=== PATIENT | female | born 1955 | race Caucasian/White ===

== ENCOUNTER → 2016-10-12 | Outpatient (CLI) | payer OTHER ==
--- NOTE | 2016-10-12 13:06 | MAMMOGRAPHY REPORT ---
BILATERAL DIGITAL SCREENING MAMMOGRAM WITH CAD: 10/12/2016 CLINICAL HISTORY: Routine screening. Patient has no complaints. TECHNIQUE: Bilateral CC and MLO views were obtained. Current study was also evaluated with a Compute r Aided Detection (CAD) system. COMPARISON: Comparison is made to exams dated: 10/10/2015 mammogram and 10/01/2014 mammogram - [facility]. BREAST COMPOSITION: There are scattered areas of fibroglandular density in both breasts. FINDINGS: The parenchymal pattern is unchanged. No developing mass, architectural distortion or clus ter of suspicious microcalcifications is seen in either breast. IMPRESSION: ACR BI-RADS CATEGORY 2: BENIGN There is no mammographic evidence of malignancy. A 1 year screening mammogram is recommended. The pa tient will receive written notification of the results. Approximately 10% of breast cancers are not detected with mammography. A negative mammographic report should not delay biopsy if a clinically suggestive mass is present. Stefanie Wall M.D. ay/:10/12/2016 10:44:38 Theatrical Rigger: Franecsca Cramer, [facility] letter sent: Normal 1/2 BI-RADS Code: ACR BI-RADS Category 2: Benign
== END | disposition home or self-care (01) ==
LOC: C.MAMM 10:12
PROVIDERS: ATTEND Family Medicine
DX: Z12.31 Encounter for screening mammogram for malignant neoplasm of breast (principal)

== ENCOUNTER → 2016-10-25 | Outpatient (CLI) | payer OTHER | END | disposition home or self-care (01) | LOC: C.MAMM 08:59 | PROVIDERS: ATTEND Physician Assistant | DX: M85.851 Other specified disorders of bone density and structure, right thigh (principal); M85.852 Other specified disorders of bone density and structure, left thigh; M85.88 Other specified disorders of bone density and structure, other site ==

== ENCOUNTER → 2017-10-13 | Outpatient (CLI) | payer OTHER ==
--- NOTE | 2017-10-13 16:05 | MAMMOGRAPHY REPORT ---
BILATERAL DIGITAL SCREENING MAMMOGRAM TOMOSYNTHESIS WITH CAD: 10/13/2017 CLINICAL HISTORY: Routine screening. Patient has no complaints. TECHNIQUE: The study was acquired using full field digital technology and interpreted from soft copy. Breast tomosynthesis in addition to standard 2D mammography was performed. Current study was also ev aluated with a Computer Aided Detection (CAD) system. COMPARISON: Comparison is made to exams dated: 10/12/2016 mammogram, 10/10/2015 mammogram, and 5 mammogram - [facility]. BREAST COMPOSITION: There are scattered areas of fibroglandular density in both breasts. FINDINGS: No suspicious masses, calcifications, or areas of architectural distortion are noted in either breast . There has been no significant interval change compared to prior exams. IMPRESSION: ACR BI-RADS CATEGORY 1: NEGATIVE There is no mammographic evidence of malignancy. A 1 year screening mammogram is recommended.( 019) The patient will receive written notification of the results. Some breast cancers are not detected with mammography. A negative mammographic report should not sheldon y biopsy if a clinically suggestive mass is present. Aniya Griffith M.D. ah/:10/13/2017 13:04:19 Sizing End Bander: RT Aleksandar(R)(M), [facility] letter sent: Normal 1/2 BI-RADS Code: ACR BI-RADS Category 1: Negative
== END | disposition home or self-care (01) ==
LOC: C.MAMM 09:42
PROVIDERS: ATTEND Family Medicine
DX: Z12.31 Encounter for screening mammogram for malignant neoplasm of breast (principal)

== ENCOUNTER → 2017-10-19 | Outpatient (CLI) | payer OTHER ==
--- NOTE | 2017-10-19 09:39 | DIAGNOSTIC IMAGING REPORT ---
CHEST 2 VIEWS ROUTINE CLINICAL HISTORY: R06.00,K21.9,I10 dyspnea COMPARISON STUDY: 02/07/2014 FINDINGS: The bones soft tissues and hemidiaphragms are normal. The cardiomediastinal silhouette is normal. The lungs are clear. The pulmonary vasculature is normal. IMPRESSION: Negative chest. The above report was generated using voice recognition software. It may contain grammatical, syntax or spelling errors. Electronically signed by: Catalino Narayan M.D. 10/19/2017 9:38 AM Dictated Date/Time: 10/19/2017 9:37 AM
== END | disposition home or self-care (01) ==
LOC: C.RAD1850 09:26
PROVIDERS: ATTEND Family Medicine
DX: R06.00 Dyspnea, unspecified (principal); K21.9 Gastro-esophageal reflux disease without esophagitis; I10 Essential (primary) hypertension

== ENCOUNTER 2024-10-02 15:15 | Observation (INO) ==
--- NOTE | 2024-10-02 16:57 | Emergency Department Note ---
Impression & Plan Lightheadedness, Hypertension ED Provider Note HISTORY OF PRESENT ILLNESS: Patient is a 69-year-old female presenting with lightheadedness and fatigue. Patient reports that 4 days ago she became very fatigued and rundown and "just did not feel right." She states that over the last 4 days she has been having intermittent episodes of lightheadedness, which she describes as feeling like she is going to pass out, but has not passed out. She has a history of pulmonary fibrosis and wears 1 L nasal cannula daily. She denies any fever or cough. She states that her blood pressure has been significantly elevated over the last 4 days. She denies any recent sick contact exposures. Denies any chest pain. She reports that she just feels very fatigued and "cannot do my normal activities." Denies any abdominal pain, nausea or vomiting. Denies any dysuria or hematuria. Denies any history of cardiac stents. Denies any DVT or PE history. She is on 81 mg baby aspirin daily. ROS: as above PHYSICAL EXAM: Constitutional: Patient appears in no acute distress. HENT: Head: Normocephalic and atraumatic. Eyes: EOMI, PERRL Mouth/Throat: Mucous membranes moist. Neck: Trachea midline. Neck supple. Cardiovascular: RRR, No murmurs, rubs or gallops. Intact distal pulses. Pulmonary/Chest: No respiratory distress. Breath sounds clear and equal bilaterally. No wheezes or rales. Abdominal: Abdomen soft, no tenderness, rebound or guarding. Musculoskeletal: No edema, tenderness or deformity noted. Skin: Warm and dry. No rash, erythema, pallor or cyanosis Psychiatric: Appropriate mood and affect for situation. Neurological: Alert and keenly responsive. CN II-XII grossly intact, moving all extremities equally and fully. MDM: - Vitals signs showed hypertension and tachycardia - History obtained via patient. History as above. - Chronic conditions affecting care: GERD; HTN - Differential diagnoses include, but are not limited to: ACS; electrolyte abnormality; dehydration; hypertension; CVA; intracranial hemorrhage - Order placed for continuous cardiac monitoring. At this time, monitor showed rate of 87 bpm with normal sinus rhythm, per my interpretation. - External medical records reviewed. Pulmonary office visit note dated 05/17/2024 was reviewed. Patient follows in their clinic for interstitial lung disease. - EKG image interpreted by myself showed normal sinus rhythm. Rate tachycardic at 101 bpm. QT 342. No acute ischemic changes. - Laboratory workup interpreted by myself showed normal WBC; stable electrolytes; normal AST/ALT; normal troponin; normal BNP - Lyme, anaplasmosis, babesia negative - CXR image reviewed by myself is negative for pneumonia, per my interpretation. - UA negative for infection - Orthostatic vital signs did not show any hypotension, but instead showed hypertension. Patient reportedly became lightheaded with standing. - Discussed results with the patient. Unclear etiology for her symptoms at this time. However, workup is grossly unremarkable. Repeat troponin was ordered. Did discuss discharge with the patient, but she reports she feels hesitant to go home, given that she is feeling so lightheaded. Will discuss case with inpatient hospitalist service. - Discussion was had with case aide about patient's case and need for admission - Hospitalist, Dr. Landin, consulted for admission - Patient admitted to [facility] hospitalist service for further evaluation and management. ASSESSMENT AND PLAN: Diagnosis: lightheadedness; hypertension Plan: Admit Past Med/Surg History Problem List (Updated 10/02/24 @ 19:40 by Theodora Fountain MD) Hypertension (Acute) Lightheadedness (Acute) Hypoxia Dyspnea Interstitial lung disease Abnormal CT scan of lung Abnormal PFT No significant past surgical history Encounter for pre-operative examination Medical History (Updated 10/02/24 @ 19:40 by Theodora Fountain MD) Sciatica CURRENT FLARE UP Osteopetrosis Borderline high cholesterol GERD (gastroesophageal reflux disease) Hypertension Surgical History History of right cataract surgery DEC 05 2019 History of colonoscopy History of removal of cyst GANGLION CYST, MULTIPLE History of hysterectomy Family History Sister Family history of diabetes mellitus (DM) Brother Family history of diabetes mellitus (DM) Social History (Updated 05/22/24 @ 15:09 by Silvia Acosta LPN) Smoking Status: Former smoker Tobacco Type: Cigarettes Age Started Using Tobacco: 15; Age Quit Using Tobacco: 28; packs per day: 1; Do You Dip or Chew Tobacco: No; Hx Alcohol Use: No Preferred Language: Amharic Communication Ability: Effective Wafer Fab Operator Required: No Beliefs That Will Affect Care: None and Jew Jew Beliefs: ORTHODOXY marital status: Current Living Situation: Family Current Living Situation Comment: SON current occupational status: unemployed Feels Safe at Home: Yes Assistive Devices: Contacts, Denture - Upper and Denture - Lower Allergies Allergies Allergy/AdvReac Type Severity Reaction Status Date / Time No Known Allergies Allergy Verified 05/22/24 16:04 Home Meds Home Medications Medication Instructions Recorded Confirmed calcium 600 mg (as 1 tab PO BID 02/18/18 05/22/24 carbonate)-vitamin D3 5 mcg (200 unit) tablet (Calcium 600 + D(3)) krill oil 500 mg capsule 1 cap PO DAILY 02/18/18 05/22/24 losartan 50 mg tablet 50 mg PO HS 02/18/18 05/22/24 multivitamin 1 tab PO DAILY 02/18/18 05/22/24 omeprazole 40 mg capsule,delayed 40 mg PO HS 02/18/18 05/22/24 release risedronate 150 mg tablet 150 mg PO MONTHLY 02/18/18 05/22/24 aspirin 81 mg tablet,delayed 81 mg PO DAILY 11/23/19 05/22/24 release (Aspir-) coenzyme Q10 100 mg capsule 50 mg PO DAILY 11/23/19 05/22/24 (CoQ-10) ibuprofen 200 mg tablet 200 - 600 mg PO Q6H PRN ACHES AND 11/23/19 05/22/24 PAINS atorvastatin 10 mg tablet 10 mg PO DAILY 07/15/20 05/22/24 loperamide 2 mg tablet (Imodium 2 mg PO Q6H PRN 12/01/21 05/22/24 A-D) lactobacillus combination no.9 4 4,000 mmu cells PO DAILY 10/12/22 05/22/24 billion cell capsule (Adult 50 Plus Probiotic) Previous Rx's Medication Instructions Recorded Oxygen Home #1 ea 10/21/22 Portable Oxygen #1 ea 10/21/22 nintedanib 100 mg capsule 100 mg PO Q12H #180 caps 08/29/23 Results & Data (ED) Vital Signs Vital Signs - 24 hr 10/02/24 15:33 10/02/24 16:35 10/02/24 16:35 Temperature 36.6 C Temperature Source Temporal Artery Scan Pulse Rate - Lying Pulse Rate - Sitting Pulse Rate - Standing Pulse Rate 112 H 93 H Pulse Rate [Left Finger] 91 H Pulse Rhythm Regular Pulse Rhythm [Left Finger] Regular Pulse Strength [Left Finger] Normal Respiratory Rate 18 20 20 Respiratory Effort / Characteristics Non-Labored Spontaneous Non-Labored Spontaneous Respiratory Depth Normal Normal Respiratory Pattern Regular Regular Blood Pressure - Lying Blood Pressure - Sitting Blood Pressure- Standing Blood Pressure 175/120 H Blood Pressure [Left Arm] 194/103 H Blood Pressure Mean 138 Blood Pressure Mean [Left Arm] 133 Blood Pressure Position [Left Arm] Sitting Pulse Oximetry 98 97 98 Oxygen Delivery Method Nasal Cannula Room Air Oxygen Flow Rate 1 Sepsis Recent Fever Within 48 Hours No Sepsis New/Unexplained Change in Mental Status N/A Sepsis Action Taken by Nursing No Action Required 10/02/24 17:48 10/02/24 18:30 10/02/24 19:00 Temperature Temperature Source Pulse Rate - Lying 89 Pulse Rate - Sitting 90 Pulse Rate - Standing 95 H Pulse Rate Pulse Rate [Left Finger] 91 H 87 Pulse Rhythm Pulse Rhythm [Left Finger] Pulse Strength [Left Finger] Respiratory Rate 18 Respiratory Effort / Characteristics Respiratory Depth Respiratory Pattern Blood Pressure - Lying 157/85 H Blood Pressure - Sitting 172/99 H Blood Pressure- Standing 191/115 H Blood Pressure Blood Pressure [Left Arm] 168/89 H 168/93 H Blood Pressure Mean Blood Pressure Mean [Left Arm] 115 118 Blood Pressure Position [Left Arm] Pulse Oximetry 97 97 Oxygen Delivery Method Room Air Oxygen Flow Rate Sepsis Recent Fever Within 48 Hours Sepsis New/Unexplained Change in Mental Status Sepsis Action Taken by Nursing Laboratory Data 10/02/24 16:39 10/02/24 16:39 Lab Results 10/02/24 10/02/24 Range/Units 16:39 17:54 WBC 8.64 (4.8-10.8) K/ul RBC 4.36 (4.20-5.40) M/uL Hgb 12.3 (12.0-16.0) g/dl Hct 37.3 (37.0-47.0) % MCV 85.6 (80.0-100.0) fL MCH 28.2 (25.0-34.0) pg MCHC 33.0 (32.0-36.0) g/dL RDW Std Deviation 43.7 (36.4-46.3) fL RDW Coeff of Lucas 14.1 (11.5-14.5) % Plt Count 300 (130-400) K/uL MPV 9.0 L (9.4-12.4) fL Immature Gran % (Auto) 0.5 % Neut % (Auto) 67.7 % Lymph % (Auto) 21.9 % Evangeline % (Auto) 8.7 % Eos % (Auto) 0.5 % Baso % (Auto) 0.7 % Neut # (Auto) 5.86 (1.40-6.50) K/uL Lymph # (Auto) 1.89 (1.20-3.40) K/uL Evangeline # (Auto) 0.75 H (0.11-0.59) K/uL Eos # (Auto) 0.04 (0.00-0.50) K/uL Baso # (Auto) 0.06 (0.00-0.20) K/uL Immature Gran # (Auto) 0.04 (0.01-0.20) K/uL Sodium 139 (136-145) mmol/L Potassium 3.9 (3.5-5.1) mmol/L Chloride 102 (98-107) mmol/L Carbon Dioxide 28 (21-32) mmol/L Anion Gap 9 (3-11) BUN 18 (6-23) mg/dl Creatinine 0.83 (0.6-1.2) mg/dl Est Cr Clr Drug Dosing 49.9 ml/min eGFR 75.79 BUN/Creatinine Ratio 21.7 H (10-20) Glucose 99 (70-99(Fasting)) mg/dl Calcium 9.5 (8.6-10.3) mg/dl Magnesium 2.1 (1.7-2.4) mg/dl Total Bilirubin 0.3 (0.2-1.0) mg/dl AST 20 (13-39) U/L ALT 12 (7-52) U/L Alkaline Phosphatase 62 (34-104) U/L Troponin I High Sens 4.8 (0-14) pg/ml B-Natriuretic Peptide 26 (0-100) pg/ml Total Protein 7.4 (6.0-8.3) gm/dl Albumin 3.8 (3.4-5.0) gm/dl Globulin 3.6 (2.5-4.0) gm/dl Albumin/Globulin Ratio 1.1 (0.9-2) Urine Color Yellow Urine Appearance Clear (Clear) Urine pH 6.0 (4.5-7.5) Ur Specific [place] 1.022 (1.000-1.030) Urine Protein Negative (Negative) Urine Glucose (UA) Negative (Negative) Urine Ketones Trace H (Negative) Urine Blood Negative (Negative) Urine Nitrite Negative (Negative) Urine Bilirubin Negative (Negative) Urine Urobilinogen Negative (Negative) Ur Leukocyte Esterase Trace H (Negative) Urine WBC (Auto) 0-5 (0-5) /hpf Urine RBC (Auto) 0-2 (0-2) /hpf U Hyaline Cast (Auto) 0-2 (0-2) /lpf U Epithel Cells (Auto) 0-2 (0-2) /hpf Urine Bacteria (Auto) None Seen (None Seen) Urine Comment Anaplasma Smear See Comment Babesia Smear See Comment Lyme Disease Screen Negative (Negative) Imaging Data Radiologist's Impression: Chest X-Ray 10/02/24 15:36 Chest radiograph, one view History: Shortness of breath Comparison: 04/05/2022 Findings: Single AP view of the chest performed. No focal consolidation or pleural effusion. No pneumothorax. The cardiomediastinal silhouette is within normal limits. Normal pulmonary vascularity. No evidence for lymphadenopathy. Irregular peripheral opacities in the lungs, appears slightly increased. No visualized bony or soft tissue abnormality. Impression: Findings of interstitial lung disease, appears slightly increased. No other acute superimposed process identified. Electronically signed by Juan José Hernandez 10-02-2024 5:22 PM Discharge Plan Visit Data Chief Complaint: Shortness of Breath/Dyspnea Stated Complaint: LIGHT HEADED,SOB,FATIGUE ED Provider: Theodora Fountain Discharge Problem: Lightheadedness, Hypertension Condition: Fair Forms Stand Alone Forms: [facility] Prescriptions Prescriptions: No Action nintedanib 100 mg capsule 100 mg PO Q12H Qty: 180 3RF atorvastatin 10 mg tablet 10 mg PO DAILY loperamide [Imodium A-D] 2 mg tablet 2 mg PO Q6H PRN (DME) Oxygen Home Liters Per Minute See Rx Instructions .ROUTE .MEDSUPPLY Qty: 1 0RF Rx Instructions: Home Oxygen concentrator with portability, test for conserving device. No O2 needed at rest and 1 LPM via n/c with exertion; GISELL 99. (DME) Portable Oxygen Misc See Rx Instructions .Route Qty: 1 0RF Rx Instructions: portable oxygen concentrator 1LPM via n/c with exertion. LON99 Adult 50 Plus Probiotic 4 billion cell capsule 4,000 mmu cells PO DAILY Rx Instructions: administer with a meal multivitamin Tablet 1 tab PO DAILY losartan 50 mg tablet 50 mg PO HS calcium carbonate-vitamin D3 [Calcium 600 + D(3)] 600 mg(1,500mg) -200 unit Tablet 1 tab PO BID omeprazole 40 mg capsule,delayed release(DR/EC) 40 mg PO HS risedronate 150 mg tablet 150 mg PO MONTHLY krill oil 500 mg Capsule 1 cap PO DAILY aspirin [Aspir-81] 81 mg Tablet,Delayed Release (Dr/Ec) 81 mg PO DAILY ibuprofen 200 mg Tablet 200 - 600 mg PO Q6H PRN (Reason: ACHES AND PAINS) coenzyme Q10 [CoQ-10] 100 mg Capsule 50 mg PO DAILY Referrals Referrals: Vicki Dumont MD [Primary Care Provider] -
[2024-10-02 17:09] LABS: Hematocrit (blood only) 37.3 % (37.0-47.0); Hemoglobin 12.3 g/dl (12.0-16.0); Immature Granulocytes # (auto) 0.04 K/uL (0.01-0.20); Immature Granulocytes % (auto) 0.5 %; Mean Corpuscular Hemoglobin 28.2 pg (25.0-34.0); Mean Corpuscular Volume 85.6 fL (80.0-100.0); Platelet Count 300 K/uL (130-400); RDW Standard Deviation 43.7 fL (36.4-46.3); Red Blood Count 4.36 M/uL (4.20-5.40); White Blood Count 8.64 K/ul (4.8-10.8)
[2024-10-02 17:20] LABS: Alanine Aminotransferase 12.0 U/L (7-52); Albumin Globulin Ratio 1.1 (0.9-2); Alkaline Phosphatase 62.0 U/L (34-104); Anion Gap 9.0 (3-11); Bilirubin,Total 0.3 mg/dl (0.2-1.0); Blood Urea Nitrogen 18.0 mg/dl (6-23); Calcium 9.5 mg/dl (8.6-10.3); Carbon Dioxide 28.0 mmol/L (21-32); Chloride 102.0 mmol/L (98-107); Creatinine Clr Calc Pharmacy 49.9 ml/min; Globulin 3.6 gm/dl (2.5-4.0); Glucose 99.0 mg/dl (70-99(Fasting)); Magnesium 2.1 mg/dl (1.7-2.4); Potassium 3.9 mmol/L (3.5-5.1); Sodium 139.0 mmol/L (136-145); Total Protein 7.4 gm/dl (6.0-8.3)
--- NOTE | 2024-10-02 17:22 | XRay Report ---
Chest radiograph, one view History: Shortness of breath Comparison: 04/05/2022 Findings: Single AP view of the chest performed. No focal consolidation or pleural effusion. No pneumothorax. The cardiomediastinal silhouette is within normal limits. Normal pulmonary vascularity. No evidence for lymphadenopathy. Irregular peripheral opacities in the lungs, appears slightly increased. No visualized bony or soft tissue abnormality. Impression: Findings of interstitial lung disease, appears slightly increased. No other acute superimposed process identified. Electronically signed by Juan José Hernandez 10-02-2024 5:22 PM
[2024-10-02 18:31] LABS: Appearance Urine Clear (Clear); Bacteria Urine Automated None Seen (None Seen); Cast Urine Automated 0-2 /lpf (0-2); Epithelial Cell Urine Auto 0-2 /hpf (0-2); Glucose Urine UA Negative (Negative); RBC Urine Automated 0-2 /hpf (0-2); WBC Urine Automated 0-5 /hpf (0-5)
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
[2024-10-02 21:01] LABS: Thyroid Stimulating Hormone 2.412 uIu/ml (0.300-4.500)
[2024-10-02] MEDS ORDERED: POLYETHYLENE (MIRALAX) 17 GM PACK PO PRN (22:12)
[2024-10-02] MEDS ORDERED: MELATONIN 3 MG TAB PO PRN (22:12)
[2024-10-02] MEDS ORDERED: ACETAMINOPHEN 325 MG TAB PO PRN (22:12)
[2024-10-02] MEDS ORDERED: ONDANSETRON INJ 2 MG/ML 2 ML VIAL IV PRN (22:12)
[2024-10-02] MEDS ORDERED: LOPERAMIDE HCL 2 MG CAP PO PRN (22:14)
[2024-10-02] MEDS: LOSARTAN POTASSIUM 50 MG TAB PO SCH (22:29)
[2024-10-02] MEDS: LOSARTAN POTASSIUM 50 MG TAB PO STA (22:55)
--- NOTE | 2024-10-02 23:13 | CT Scan Report ---
Exam(s): CT HEAD Without Contrast EXAM: CT Head Without Intravenous Contrast CLINICAL HISTORY: Reason for exam: Dizzy, lightheaded. TECHNIQUE: Axial computed tomography images of the head/brain without intravenous contrast. Automated exposure control was utilized for the study. A dose lowering technique was utilized adhering to the principles of ALARA. COMPARISON: No relevant prior studies available. FINDINGS: Brain: Unremarkable. No hemorrhage. Mild nonspecific white matter changes.. No edema. Ventricles: Unremarkable. No ventriculomegaly. Bones/joints: Unremarkable. No acute fracture. Soft tissues: Unremarkable. Sinuses: Unremarkable as visualized. No acute sinusitis. Mastoid air cells: Unremarkable as visualized. No mastoid effusion. IMPRESSION: No evidence of acute intracranial pathology. Electronically signed by: Lauren Oglesby MD 10/02/24 23:12 PM
[2024-10-03] MEDS: ATORVASTATIN 10 MG TAB PO SCH (08:43)
[2024-10-03] MEDS: LACTATED RINGER'S 1,000 ML IV SCH (08:44)
[2024-10-03] MEDS: NINTEDANIB ESYLATE 100 MG CAPSULE PO SCH (08:44)
--- NOTE | 2024-10-03 11:27 | XCELERA ---
[id number]
--- NOTE | 2024-10-03 12:47 | Hospitalist Progress Note ---
Date of Service October 03, 2024 Assessment & Plan (1) Dizziness: (2) Interstitial lung disease: Plan 69-year-old female PMHx ILD, HTN, depression, GERD, OP, rosacea, and chronic back pain/myalgias presenting for fatigue, palpitations, and lightheadedness starting 2 to 3 days [employer]. While in the ED, she was noted to have a brief episode of ?SVT on tracing. No prior known hx of arrhythmia such as a fib/flutter or SVT. #Dizziness - CBC without leukocytosis, stable H&H; CMP grossly unremarkable - Orthostatics negative - Troponin, BNP WNL; Tick panel negative - TSH 2.412 - CXR increased chronic changes, no superimposed acute findings - CT head not showing acute changes - B/l Carotid Doppler unremarkable - Echo w/ EF of 60-65%, normal LV systolic function, and Grade I diastolic dysfunction - Uncertain etiology at this time. Possible sxs may be related to multiple factors including dehydration, vertigo, plus or minus undiagnosed arrhythmia. Gentle mIVF Could consider plasticator after discharge to r/o the latter. - Continue to monitor telemetry #Interstitial lung disease Idiopathic pulmonary fibrosis, on nintedanib (Ofev) twice daily as outpatient. She does partake in pulmonary rehab. Follows with pulmonology, most recent visit being 05/17/2024. - No cough or SOB at rest, has had increased LAI over the past week. - 1L O2 at all times - continue - Continue Ofev #Diarrhea- Chronic, 2/2 to medications per patient; Loperamide prn - continue #HLD- Atorvastatin - continue #HTN- Losartan - continue #GERD- Omeprazole - continue #OP- Risedronate monthly - continue outpatient Dispo: Obs, med/tele VTE Prophylaxis: Lovenox Admission and Anticipated Discharge Date Admission Date: October 02, 2024 Supervising Physician Co-Signing Physician Notes Attending attestation Pt seen and examined in concert with Dr. Cezar Lee. In agreement with the documented findings as noted in the resident documentation with any exceptions or additions as noted here. Reports ongoing mild lightheadedness which is worsened with lateral gaze to the left and with movements of the upper body (though somewhat different than presenting complaint) with h/o BPPV reported by patient. VS as noted. On examination, S1/S2 nl RRR no MCG. CTAB. Abd NT/ND BS+ve Lightheadedness - CT head, carotid duplex, echocardiogram as noted. Telemetry monitoring in place without present abnormality. Orthostatics negative. Else see resident documentation as noted. Subjective Laying in bed comfortably. Denies having any pain or SOB. Does endorse having diarrhea, which she states is related to a medication that was started for her ILD. Has been eating well and drinking fluids. Feels lightheaded even when at rest and cannot recall a trigger, but states she did feel lightheaded when standing yesterday while doing orthostatic VS. States she has had episodes of vertigo, and feels this is different from those past times. Physical Exam Physical Exam: General: AAOx3, afebrile, NAD Skin: Warm and dry Cardio: RRR, no M/G/R, S1 and S2 normal Resp: Crackles bilaterally, normal respiratory effort, no respiratory distress, breathing at room air Abdomen: Soft, nontender, nondistended Results & Data Results & Data Vital Signs (Past 12 Hours) Vital Signs Temp Pulse Pulse Resp BP Pulse Ox O2 Del Method 10/03/24 11:09 78 10/03/24 10:30 36.7 C 79 16 170/85 H 95 Room Air 10/03/24 08:48 86 22 158/81 H 96 Room Air 10/03/24 07:15 76 16 148/87 H 98 Room Air 10/03/24 07:04 79 Resident Activity Tracking Resident Involvement: Resident Care Provided Care Provided: Adult Hospital Medicine
--- NOTE | 2024-10-03 13:06 | Ultrasound Report ---
ULTRASOUND OF THE CAROTID ARTERIES CLINICAL HISTORY: Lightheadedness. COMPARISON STUDY: No priors TECHNIQUE: Real-time, grayscale, and color Doppler sonography of the carotid arteries is performed. I mages are reviewed in the transverse and longitudinal planes. FINDINGS: The carotid arteries are patent bilaterally and demonstrate antegrade flow. There is mild atheroscler otic plaque seen in the carotid bulbs bilaterally, left side greater than right. Normal doppler arter ial waveforms are seen throughout. Velocity measurements are listed below. Common carotid peak systolic velocity (cm/sec): RIGHT: 62 LEFT: 68 ICA proximal peak systolic velocity (cm/sec): RIGHT: 78 LEFT: 79 ICA mid peak systolic velocity (cm/sec): RIGHT: 62 LEFT: 82 ICA distal peak systolic velocity (cm/sec): RIGHT: 74 LEFT: 64 ICA/CC peak systolic ratio: RIGHT: 1.3 LEFT: 1.2 Antegrade flow was shown in the vertebral arteries. The external carotid arteries are patent. IMPRESSION: 1. There is no sonographic evidence of hemodynamically significant stenosis in the right or left grig[place] tid arterial system. 2. Antegrade flow is shown in the vertebral arteries. ACT 112: Negative or not required by law. Electronically signed by: Anand Pritchard M.D. 10/03/2024 1:05 PM
--- NOTE | 2024-10-03 17:31 | Electrocardiogram Report ---
Test Reason : Blood Pressure : */* mmHG Vent. Rate : 101 BPM Atrial Rate : 101 BPM P-R Int : 144 ms QRS Dur : 74 ms QT Int : 342 ms P-R-T Axes : 53 21 32 degrees QTcB Int : 443 ms Sinus tachycardia Poor R wave progression, consider anterior TX vs. lead placement vs. LVH Abnormal ECG No previous ECGs available Confirmed by Juan José Womack ([id number]) on 10/03/2024 5:30:28 PM Referred By: REFERRED SELF Confirmed By: Juan José Womack
[2024-10-03] MEDS: IBUPROFEN 600 MG TAB PO ONE (17:37)
[2024-10-03] MEDS: LOSARTAN POTASSIUM 50 MG TAB PO SCH (20:24)
[2024-10-04 03:50] VITALS: O2SAT 97
[2024-10-04 07:46] VITALS: RESP 18
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
[2024-10-04] MEDS: ENOXAPARIN INJ 40 MG/0.4 ML SYR SQ SCH (08:39)
[2024-10-04 11:41] VITALS: PULSE 84; TEMP 98.1
[2024-10-04 12:18] VITALS: BP 147/80
--- NOTE | 2024-10-22 05:55 | Coding Query ---
A supporting diagnosis is required for the test/procedure performed on this patient in order for us to be reimbursed by the patient's insurance. Please provide a supporting diagnosis for the following test/procedure listed below next to the test name. *If there is no additional diagnosis for this patient that would support the following test/procedure please document that below next to the test/procedure. Test(s)/Procedure(s) that require a supporting diagnosis: * (CAROTID DOP)DUPLEX NECK ARTER 78623 DIAGNOSIS: R42, R55 Thank you Van[facility] myinfoQ Information Management Once completed, please kindly fax back to [phone] For questions please call [phone] [facility]
== END 2024-10-04 13:26 | disposition home or self-care (01) ==
LOC: ED 15:15 → EDINP 15:15 → SUATTDRO 20:17 → 2N 22:12